=== PATIENT | male | born 1995 | race Caucasian/White ===

== ENCOUNTER 2021-03-12 11:45 | Emergency (ER) | payer SELFPAY ==
[~2021-03-12 11:45] MED LIST: CYCLOBENZAPRINE10 MG PO; FLEXERIL10 MG PO; MEDROL 4MG DOSEP4 MG PO; NORCO 5-325 TA1 EACH PO
[2021-03-12] MEDS ORDERED: PREDNISONE 20MG20 MG PO (13:52)
[2021-03-12] MEDS ORDERED: CYCLOBENZAPRINE10 MG PO (13:52)
== END 2021-03-12 14:18 | disposition home or self-care (01) ==
LOC: FER 11:45
DX: M54.9 Dorsalgia, unspecified (principal); G89.29 Other chronic pain
CPT/HCPCS: 96372; 99283; J1100; J1885